=== PATIENT | male | born 1985 | race Two or more races ===

== ENCOUNTER 2021-10-26 13:11 | Emergency (ER) | payer SELFPAY ==
[~2021-10-26] VITALS: Ht 180.3 cm; Wt 87.7 kg
[2021-10-26 14:37] VITALS: BP 128/82
== END 2021-10-26 15:56 | disposition home or self-care (01) ==
LOC: ER 13:11
DX: S00.93XA Contusion of unspecified part of head, initial encounter (principal); W22.8XXA Striking against or struck by other objects, initial encounter; Y93.89 Activity, other specified; Y92.89 Other specified places as the place of occurrence of the external cause; Y99.8 Other external cause status
CPT/HCPCS: 82962